=== PATIENT | male | born 1985 | race Caucasian/White ===

== ENCOUNTER 2018-09-08 10:00 | Emergency (ER) | payer BC ==
[2018-09-08 10:12] VITALS: BP 136/88
[2018-09-08] MEDS ORDERED: Bupivacaine 0.5% 10 ML SDV INJECT ONE (10:12)
[2018-09-08] MEDS ORDERED: Benzocaine 20% Topical Spray UD MUCMEM ONE (10:12)
[2018-09-08] MEDS ORDERED: Lidocaine 2% Viscous Solution 15 ML Cup PO ONE (10:13)
--- NOTE | 2018-09-08 10:21 | EDM.PDOC ---
ED HPI GENERAL MEDICAL PROBLEM - General Chief Complaint: General Stated Complaint: TOOTH PAIN Time Seen by Provider: 09/08/18 10:02 - History of Present Illness INITIAL COMMENTS - FREE TEXT/NARRATIVE: HISTORY AND PHYSICAL: History of present illness: Patient 33-year-old white male presents with a concern of history of dental abscess and dental pain he denies fever chills nausea vomiting and is scheduled to see an oral surgeon in the near future. Review of systems: As per history of present illness and below otherwise all systems reviewed and negative. Past medical history: As per history of present illness and as reviewed below otherwise noncontributory. Surgical history: As per history of present illness and as reviewed below otherwise noncontributory. Social history: No reported history of drug or alcohol abuse. Family history: As per history of present illness and as reviewed below otherwise noncontributory. Physical exam: HEENT: Atraumatic, normocephalic, pupils reactive, negative for conjunctival pallor or scleral icterus, mucous membranes moist, throat clear, neck supple, nontender, trachea midline. Lungs: Clear to auscultation, breath sounds equal bilaterally, chest nontender. Heart: S1S2, regular, negative for clicks, rubs, or JVD. Abdomen: Soft, nondistended, nontender. Negative for masses or hepatosplenomegaly. Negative for costovertebral tenderness. Pelvis: Stable nontender. Genitourinary: Deferred. Rectal: Deferred. Extremities: Atraumatic, negative for cords or calf pain. Neurovascular unremarkable. Neuro: Awake, alert, oriented. Cranial nerves II through XII unremarkable. Cerebellum unremarkable. Motor and sensory unremarkable throughout. Exam nonfocal. Diagnostics: None Therapeutics: Dental block with 0.5% Sensorcaine Impression: #1 dentalgia #2 history of dental abscess Definitive disposition and diagnosis as appropriate pending reevaluation and review of above. right upper dental pain Pain Score (Numeric/FACES): 9 - Related Data Allergies Allergy/AdvReac Type Severity Reaction Status Date / Time No Known Allergies Allergy Verified 01/15/14 09:43 Home Meds: Home Meds Hydrocodone/Acetaminophen [Hydrocodon-Acetaminoph 7.5-325] 1 tab PO PRN [History] Penicillin V Potassium 500 mg PO DAILY 09/08/18 [History] Past Medical History - Past Health History Medical/Surgical History: Denies Medical/Surgical History - Past Surgical History HEENT Surgical History: Reports: Tonsillectomy Social & Family History - Family History Family Medical History: Noncontributory - Tobacco Use Smoking Status *Q: Never Smoker - Recreational Drug Use Recreational Drug Use: No ED ROS GENERAL - Review of Systems Review Of Systems: ROS reveals no pertinent complaints other than HPI. ED EXAM, GENERAL - Physical Exam Exam: See Below (See dictation) Course - Vital Signs Last Recorded V/S: Last Vital Signs Temp 35.8 C 09/08/18 10:09 Pulse 62 09/08/18 10:09 Resp 18 09/08/18 10:09 BP 136/88 09/08/18 10:09 Pulse Ox 100 09/08/18 10:09 - Orders/Labs/Meds Meds: Medications Discontinued Medications Generic Name Dose Route Start Last Admin Trade Name Freq PRN Reason Stop Dose Admin Benzocaine 2 each 09/08/18 10:12 Hurricaine One 20% MUCMEM 09/08/18 10:13 ONETIME ONE Bupivacaine HCl 5 ml 09/08/18 10:12 Sensorcaine-Mpf 0.5% INJECT 09/08/18 10:13 ONETIME ONE Lidocaine HCl 15 ml 09/08/18 10:13 Xylocaine 2% Viscous PO 09/08/18 10:14 ONETIME ONE Departure - Departure Time of Disposition: 10:26 Disposition: Home, Self-Care 01 Condition: Good Clinical Impression: Dentalgia, Dental abscess - Discharge Information Instructions: Dental Abscess Referrals: PCP,Not In Area [Primary Care Provider] - Forms: ED Department Discharge Additional Instructions: Please continue taking your prescribed antibiotics. Use provided dental balls as well as prescribed Ultram for pain control. Follow up with your dentist early this week for further evaluation. Please return to the ED as needed and as discussed.
== END 2018-09-08 10:40 | disposition home or self-care (01) ==
LOC: MW.ED 10:00
DX: K04.7 Periapical abscess without sinus (principal)
CPT/HCPCS: 99282; A9270; J3490; 99283